=== PATIENT | female | born 1935 | race Caucasian/White ===

== ENCOUNTER → 2017-01-20 | Outpatient (CLI) | payer OTHER ==
[~2017-01-20] MED LIST: ALPRAZOLAM; ASPIRIN; ATENOLOL; CELEBREX; DETROL; HYDROCODON-ACE1 EAC7 PO; LIPITOR; LOTREL 5/10 MG1 CAP; MELOXICAM15 MG PO; PRILOSEC
--- NOTE | ~2017-01-20 | BD1 ---
[facility] A Service of [facility] RADIOLOGY TEXT RESULTS PATIENT: TALITA BOOGIE LOCATION: [facility] : 39 UNIT #: [id number] AGE: [address]: Fernando Hdz MD SEX: F ORDER DR: [id number] [facility]. [place], [place] [address] [id number] O MR#: [id number] Acc #: [id number] NAME: TALITA BOOGIE : 1935 SEX: F STUDY DATE/TIME: 01/20/2017 11:20 UNIT: [facility] ROOM: STUDY DESCRIPTION: BD Dexa Bone Dens 1+ Site Attending Physician: Fernando Hdz M.D. Referring Physician: Fernando Hdz M.D. Ordering Physician: Fernando Hdz M.D. Primary Care Physician: Fernando Hdz M.D. MEDICAL IMAGING REPORT This report is preliminary unless electronic signature is present EXAM DXA scan. HISTORY 81-year-old female postmenopausal screening for osteoporosis. FINDINGS Bone density was assessed utilizing Hologic bone densitometer. Total bone density within the proximal left femur was measured 0.634 g/cm2 with a T-score of -2.5. Total bone density in the lumbar spine measures 0.861 g/cm2 with a T-score of -1.7. I suspect this is falsely elevated due to sclerosis at the L4 level. Excluding the L4 level, the patient's bone density ranges between 2.1-2.6 standard deviations below the mean. IMPRESSION Total bone density within the proximal left femur is 2.5 standard deviations below the mean and is compatible with the World Health Organization classification for osteoporosis. Dictated by... Julio C Funez M.D. THIS IS AN ELECTRONICALLY VERIFIED REPORT Julio C Funez M.D. at 01/25/2017 1:20 PM [place] TD: 01/20/2017 12:05 JOB #: [id number] [facility] A Service of [facility] RADIOLOGY TEXT RESULTS PATIENT: TALITA BOOGIE LOCATION: [facility] : 39 UNIT #: [id number] AGE: [address]: Fernando Hdz MD SEX: F ORDER DR: MEDICAL IMAGING REPORT Page 1 of 1 COPY
== END | disposition home or self-care (01) ==
LOC: CWCC 10:53
DX: Z13.820 Encounter for screening for osteoporosis (principal); Z79.890 Hormone replacement therapy; M81.0 Age-related osteoporosis without current pathological fracture
CPT/HCPCS: 77080